=== PATIENT | male | born 1985 | race African-American/Black ===

== ENCOUNTER 2021-12-29 14:42 | Emergency (ER) | payer OTHER ==
[2021-12-29] MEDS ORDERED: Lidocaine 1% (PF) 30 ML VIAL ONE (16:35)
== END 2021-12-29 17:00 | disposition home or self-care (01) ==
LOC: CSHERS 14:42
DX: S61.211A Laceration without foreign body of left index finger without damage to nail, initial encounter (principal); W31.89XA Contact with other specified machinery, initial encounter; G40.909 Epilepsy, unspecified, not intractable, without status epilepticus
CPT/HCPCS: 12001; J2001

== ENCOUNTER 2022-02-15 08:46 | Emergency (ER) | payer OTHER ==
[2022-02-15] MEDS ORDERED: Ondansetron ODT 4 MG TAB ONE (09:50)
== END 2022-02-15 11:39 | disposition home or self-care (01) ==
LOC: CSHERS 08:46
DX: B34.9 Viral infection, unspecified (principal); R07.89 Other chest pain; K03.81 Cracked tooth; K02.9 Dental caries, unspecified; G40.802 Other epilepsy, not intractable, without status epilepticus; Z20.822 Contact with and (suspected) exposure to COVID-19; Z79.899 Other long term (current) drug therapy
CPT/HCPCS: 71045; 87804; 93005; Q0162; U0003; U0005

== ENCOUNTER 2023-04-07 21:26 | Emergency (ER) | payer OTHER ==
[2023-04-08 00:22] LABS: SARS-CoV-2 NAA Rapid Test Not Detected (NotDetected)
== END 2023-04-08 00:36 | disposition home or self-care (01) ==
LOC: CSHERS 21:26
DX: A08.4 Viral intestinal infection, unspecified (principal); G40.909 Epilepsy, unspecified, not intractable, without status epilepticus; Z79.899 Other long term (current) drug therapy; Z20.822 Contact with and (suspected) exposure to COVID-19
CPT/HCPCS: 99283

== ENCOUNTER 2023-06-17 09:14 | Emergency (ER) | payer OTHER ==
[2023-06-17] MEDS ORDERED: Ibuprofen 200 MG TAB ONE (10:04)
[2023-06-17 10:54] LABS: SARS-CoV-2 NAA Rapid Test Not Detected (NotDetected)
== END 2023-06-17 11:13 | disposition home or self-care (01) ==
LOC: CSHERS 09:14
DX: J10.1 Influenza due to other identified influenza virus with other respiratory manifestations (principal)
CPT/HCPCS: 36415; 71046; 80299; G0480

== ENCOUNTER 2024-01-29 18:04 | Emergency (ER) | payer OTHER, SELFPAY ==
[2024-01-29 18:54] LABS: Bilirubin Neg (Negative); Blood, Urine 10 (Negative); Clarity Clear (Clear); Glucose, Urine (Dipstick) Normal (Negative); Ketone, Urine Negative (Negative); Leukocyte Negative (Negative); Nitrite Negative (Negative); Protein, Urine (Dipstick) Negative (Neg-Trace); Urobilinogen Normal mg/dL (Less than 2)
[2024-01-29 19:22] LABS: Bacteria/HPF Rare-Few HPF (None Seen); CAUTI Indications for Culture Pelvic or flank pain; RBC/HPF 0-3 HPF (0-3); Sperm/HPF Rare HPF (None Seen); WBC/HPF 0-3 HPF (0-3)
[2024-01-29 19:23] LABS: Squamous Epithelial None Seen HPF (0-3)
[2024-01-29 19:24] LABS: Urine Culture Reflex No No
[2024-01-30 12:18] LABS: Chlam.trachomatis by PCR,Urine Not Detected (NotDetected); GC N.gonorrhoeae PCR,UrineVOID Not Detected (NotDetected)
== END 2024-01-29 19:12 | disposition home or self-care (01) ==
LOC: CSHERS 18:04
DX: Z11.3 Encounter for screening for infections with a predominantly sexual mode of transmission (principal)
CPT/HCPCS: 81001; 87491; 87591; 99283